=== PATIENT | female | born 1965 | race African-American/Black ===

== ENCOUNTER 2018-10-03 05:08 | Inpatient (IN) | payer OTHER ==
[~2018-10-03] VITALS: Ht 170.2 cm; Wt 101.6 kg
[2018-10-03] VITALS (13 sets, daily range): BP systolic 130–168; BP diastolic 73–88
--- NOTE | 2018-10-03 05:30 | NUR ---
RN MS OPENING NOTES RECEIVED PATIENT FOR DAY SURGERY VIA AMBULATORY, VS TAKEN WNL, RIGHT AC #20 G INTACT AND PATENT, NO REDNESS, NO INFILTRATION , CONSENTS SIGNED, PATIENT PREPARED FOR SAY SURGERY, BELONGINGS LIST DONE, MRSA DONE. PATIENT REMAINS COMFORTABLE AT THIS TIME, NPO STATUS.
[2018-10-03] MEDS ORDERED: ANESTHESIA TRAY IN PYXIS 1 EA TRAY MC ONE (05:54)
[2018-10-03] MEDS ORDERED: BACITRACIN 50000 UNITS/VIAL ONE (06:07)
[2018-10-03] MEDS ORDERED: FENTANYL PF 250MCG/5ML AMPUL ONE ×2 (06:13)
[2018-10-03] MEDS ORDERED: MIDAZOLAM HCL 2 MG/2ML VIAL ONE (06:13)
[2018-10-03] MEDS ORDERED: FAMOTIDINE/PF INJ 20 MG/2 ML VIAL IV ONE (06:14)
[2018-10-03] MEDS ORDERED: ROCURONIUM BROMIDE 50 MG/5 ML ONE (06:14)
[2018-10-03] MEDS ORDERED: BUPIVACAINE 0.25% 75 MG/30 ML VIAL ONE (06:15)
--- NOTE | 2018-10-03 06:20 | NUR ---
RN MS NOTES PATIENT WAS PICKED UP [facility] OR STAFF FOR SCHEDULED SURGERY WITH , LEFT IN STABLE CONDITION, PER SURGERY NEED TYPE AND CROSS, ORDERED PLACED ORDERED PER MD. LAB MADE AWARE. PATIENT IS OUT OF THE UNIT AT THIS TIME, WILL ENDORSE TO NEXT SHIFT.
[2018-10-03] MEDS ORDERED: TRANEXAMIC ACID 3,000 MG in SODIUM CHLORIDE IRRIG SOLUTION 70 ML IR ONE (08:00)
[2018-10-03] MEDS ORDERED: FENTANYL PF 100MCG/2ML AMPUL ONE (08:51)
[2018-10-03] MEDS ORDERED: HYDROMORPHONE 1 MG/1 ML DISP.SYRIN IV PRN (09:00)
[2018-10-03] MEDS ORDERED: diphenhydrAMINE HCL ELIX 25 MG/10 ML UDC PO PRN (09:00)
[2018-10-03] MEDS ORDERED: MAG HYDROX/AL HYDROX/SIMETH 30 ML UDC PO PRN ×2 (09:00→11:00)
[2018-10-03] MEDS ORDERED: KETOROLAC TROMETHAMINE INJ 30 MG/ML VIAL ONE (09:06)
[2018-10-03] MEDS ORDERED: MEPERIDINE HCL/PF 100 MG/ML DISP.SYRIN ONE (09:13)
--- NOTE | 2018-10-03 09:45 | NUR ---
MS RN NOTES RECEIVED PATIENT FROM OR VIA [facility]. PATIENT VITAL SIGNS BP 161/108, HR 68, 02 99%. ALERT AND ORIENTEDX 3. WILL CONTINUE TO MONITOR AND CONTROL PAIN.
[2018-10-03] MEDS: MORPHINE SULFATE INJ 4 MG/ML DISP.SYRIN IM PRN ×3 (10:43→20:06)
[2018-10-03] MEDS ORDERED: IV NS 0.9% 1,000 ML IV PRN (10:55)
[2018-10-03] MEDS ORDERED: ZOLPIDEM TARTRATE 5 MG TABLET PO PRN (11:00)
[2018-10-03] MEDS ORDERED: MAGNESIUM HYDROXIDE 30 ML UDC PO PRN (11:00)
[2018-10-03] MEDS ORDERED: ACETAMINOPHEN 325 MG TABLET PO PRN (11:00)
[2018-10-03] MEDS ORDERED: SENNOSIDES 8.6 MG TABLET PO PRN (12:30)
[2018-10-03] MEDS ORDERED: BISACODYL SUPP (10 MG) 10 MG/SUPP.RECT SUPP.RECT RC PRN (12:30)
[2018-10-03 12:36] LABS: HEMOGLOBIN 13.1 g/dL (11.5-14.8)
[2018-10-03] MEDS: ANCEF 1 GM/50 ML D5W IV SCH ×4 (15:45→22:52)
--- NOTE | 2018-10-03 19:20 | NUR ---
RN OPEN NOTES RECEIVED PATIENT AWAKE IN BED. A/O X4. NO SIGNS OF DISTRESS. BREATHING EVEN AND UNLABORED. IV ACCESS IN RAC, WITH NS INFUSING, PATENT AND INTACT, NO SIGNS OF REDNESS OR INFILTRATION. L ARM IMMOBILIZER INPLACE, SX DRESSING C/D/I. BED IN LOW LOCKED POSITION WITH SIDE RAILS X2. CALL LIGHT WITHIN REACH. WILL CONTINUE TO MONITOR.
--- NOTE | 2018-10-03 19:39 | NUR ---
MS RN CLOSING NOTES PATIENT AWAKE, ALERT AND ORIENTEDX4. PATIENT RESTING IN BED, ON ROOM AIR. PATIENT BREATHING IS EVEN AND UNLABORED. PATIENT IN NO ACUTE DISTRESS. PATIENT KEPT CLEAN, DRY, AND COMFORTABLE. INCENTIVE SPIROMETER AT THE BEDSIDE. PATIENT BED ALARM ON. PATIENT ON DVT PUMPS. IV INTACT. ALL NURSING NEEDS MET. ALL SAFETY PRECAUTIONS ENFORCED. PAIN CONTROL WITH MEDICATIONS. PATIENT BED LOCKED AND IN LOW POSITION. CALL LIGHT WITHIN REACH. ENDORSED CARE TO PM.
--- NOTE | 2018-10-03 20:06 | NUR ---
KARIE NOTES ADMINISTERED MORPHINE 4MG ORDERED FOR L SHOULDER PAIN 02/09, AT PATIENT REQUEST. VSS. WILL CONTINUE TO MONITOR. Addendum: 10/04/18 at 0558 by GRETCHEN CABEZAS RN INJ TO R DELTOID
[2018-10-03] MEDS: FAMOTIDINE (20 MG) 20 MG TABLET PO SCH (20:07)
--- NOTE | 2018-10-03 21:29 | NUR ---
RN NOTES ADMINISTERED DILAUDID .5MG ORDERED FOR L SHOULDER PAIN 02/09, AT PATIENT REQUEST. VSS. WILL CONTINUE TO MONITOR.
[2018-10-04] MEDS ORDERED: HYDROMORPHONE 1 MG/1 ML DISP.SYRIN SQ ONE
[2018-10-04] MEDS: ONDANSETRON HCL/PF 4 MG/2 ML VIAL IV PRN ×2 (00:41→08:42)
--- NOTE | 2018-10-04 00:41 | NUR ---
RN NOTES ADMINISTERED DILAUDID 1MG SQ ORDERED IN R UPPER ARM FOR L SHOULDER PAIN 12/10, AT PATIENT REQUEST. VSS. WILL CONTINUE TO MONITOR.
[2018-10-04] MEDS: HYDROMORPHONE 1 MG/1 ML DISP.SYRIN SQ PRN ×2 (05:32→08:41)
--- NOTE | 2018-10-04 05:32 | NUR ---
RN NOTES ADMINISTERED DILAUDID 1MG SQ ORDERED IN R LOWER ABD FOR L SHOULDER PAIN 01/10, AT PATIENT REQUEST. VSS. WILL CONTINUE TO MONITOR.
[2018-10-04 06:50] LABS: BASOPHILS % (AUTO) 0.1 % (0.0-2.0); HEMATOCRIT 36 % (33-45); HEMOGLOBIN 11.8 g/dL (11.5-14.8); LYMPHOCYTES # (AUTO) 1.1 /CMM (0.8-4.8); LYMPHOCYTES % (AUTO) 10.2 % (20.0-44.0); MEAN CORPUSCULAR HGB CONC 33 g/dl (31.0-36.0); MEAN CORPUSCULAR VOLUME 79 fL (82-100); MONOCYTES # (AUTO) 0.6 /CMM (0.1-1.30); MONOCYTES % (AUTO) 5.9 % (2.0-12.0); NEUTROPHILS # (AUTO) 9.3 /CMM (1.8-8.9); NEUTROPHILS % (AUTO) 83.8 % (43.0-81.0); PLATELET COUNT (AUTO) 138 /CMM (150-450); RED BLOOD CELL COUNT(AUTO) 4.61 MIL/uL (4.0-5.2); WHITE BLOOD COUNT (AUTO) 11.1 K/uL (4.3-11.0)
[2018-10-04 06:55] LABS: ALBUMIN 3.4 g/dL (3.4-5.0); BILIRUBIN,TOTAL 0.6 mg/dL (0.2-1.0); CALCIUM, SERUM 8.7 mg/dL (8.5-10.1); CREATININE 0.7 mg/dL (0.6-1.3); PHOSPHORUS 3.5 mg/dL (2.5-4.9); POTASSIUM 3.8 mmol/L (3.5-5.1); TOTAL PROTEIN, SERUM 7.4 g/dL (6.4-8.2)
--- NOTE | 2018-10-04 07:06 | NUR ---
RN CLOSING NOTES PATIENT RESTING IN BED, EASILY AROUSABLE. A/O X4. NO SIGNS OF DISTRESS OR DISCOMFORT. BREATHING EVEN AND UNLABORED. IV ACCESS IN RAC, WITH NS INFUSING, PATENT AND INTACT, NO SIGNS OF REDNESS OR INFILTRATION. L ARM IMMOBILIZER INPLACE, SX DRESSING C/D/I. ALL NEEDS MET. NO SIGNIFICANT CHANGES THROUGH THE NIGHT. BED IN LOW LOCKED POSITION WITH SIDE RAILS X2. CALL LIGHT WITHIN REACH. ENDORSED TO AM SHIFT FOR YEVGENIY.
--- NOTE | 2018-10-04 07:27 | NUR ---
MS RN OPENING NOTES PATIENT IN BED RESTING, AWAKE, ALERT, AND ORIENTED X4. PATIENT IN NO ACUTE DISTRESS. PATIENT BREATHING ON ROOM AIR. PATIENT BREATHING EVEN AND UNLABORED. PATIENT PAIN CONTROLLED AT THIS TIME. PATIENT DVT PUMPS ON. BED IS LOCKED AND IN LOW POSITION. CALL LIGHT WITHIN REACH. WILL CONTINUE TO MONITOR.
[2018-10-04 08:00] VITALS: BP 132/60
[2018-10-04] MEDS: ASPIRIN 325 MG TABLET PO SCH ×2 (08:42→18:06)
[2018-10-04] MEDS: FAMOTIDINE (20 MG) 20 MG TABLET PO SCH ×2 (08:42→20:25)
[2018-10-04] MEDS ORDERED: ONDA4TAB5 PO (11:06)
--- NOTE | 2018-10-04 11:15 | NUR ---
MS RN NOTES PATIENT WAS SEEN AND EVALUATED BY JOELLE SAN. DISCUSSED PLAN OF CARE AND WILL PROCEED WITH ORDERS FOLLOWED. WILL CONTINUE TO MONITOR.
[2018-10-04] MEDS ORDERED: IBUPROFEN 400 MG TABLET PO PRN (11:30)
[2018-10-04] MEDS: HYDROCODONE/APAP 10/325MG 1 EA TABLET PO PRN ×3 (15:40→23:28)
[2018-10-04 16:00] VITALS: BP 131/73
--- NOTE | 2018-10-04 19:30 | NUR ---
RECEIVED PATIENT SITTING UP IN BED, AWAKE. AO X 3, ABLE TO MAKE NEED KNOWN. NO ACUTE DISTRESS NOTED. MONITORED FOR PAIN. IV SITE PATENT, INTACT; FLUSHED. SAFETY REMINDERS GIVEN. ON LOW BED WITH BILATERAL UPPER SIDE RAILS UP. CALL RODGERS WITHIN EASY REACH. WILL CONTINUE TO MONITOR. AT BEDSIDE.
--- NOTE | 2018-10-04 19:46 | NUR ---
MS RN CLOSING NOTES PATIENT IN BED RESTING. PATIENT IN BED AWAKE, ALERT AND ORIENTED X4. PATIENT BREATHING ON ROOM AIR. PATIENT BREATHING EVEN AND UNLABORED. PATIENT PAIN CONTROLLED WITH PAIN MEDICATIONS. PATIENT IN NO ACUTE DISTRESS. NO SOB NOTED. IV INTACT. ALL NURSING NEEDS MET. PATIENT KEPT CLEAN, DRY AND COMFORTABLE. PATIENT BED IN LOCKED AND LOWEST POSITION. CALL LIGHT WITHIN REACH. ENDORSED CARE TO PM SHIFT FOR CONTINUITY OF CARE.
[2018-10-04 20:00] VITALS: BP 133/70
[2018-10-04 20:22] VITALS: BP 133/70
[2018-10-05] MEDS: HYDROCODONE/APAP 10/325MG 1 EA TABLET PO PRN ×3 (02:38→09:57)
--- NOTE | 2018-10-05 06:00 | NUR ---
PATIENT ASLEEP, EASILY AROUSABLE. RESPIRATIONS EVEN. NO SIGNS OF PAIN NOTED. DUE MED GIVEN WITH NO ASE NOTED. PATIENT'S IV GOT PULLED OUT. PATIENT STRONGLY REFUSED TO HAVE ANOTHER IV INSERTED. PATIENT ALSO REFUSED IVF. PATIENT DRINKING WELL. [facility] OFFERED Q 3 HOURS PER PATIENT'S REQUEST. NEEDS ATTENDED. SAFETY REMINDERS AND COMFORT MEASURES IN PLACE. WILL GIVE REPORT TO DAY SHIFT FOR CONTINUITY OF CARE.
--- NOTE | 2018-10-05 07:38 | NUR ---
MS RN OPENING NOTES PATIENT RESTING COMFORTABLY IN BED. PATIENT ALERT AND ORIENTED X4. PATIENT BREATHING ON ROOM AIR. PATIENT IN NO ACUTE DISTRESS. NO SOB NOTED. PATIENT BREATHING IS EVEN AND UNLABORED. PATIENT BED ALARM IS ON. PATIENT BED LOCKED AND IN LOWEST POSITION.CALL LIGHT WITHIN REACH. WILL CONTINUE TO MONITOR.
[2018-10-05 08:00] VITALS: BP 127/68
[2018-10-05] MEDS ORDERED: ONDANSETRON HCL 4 MG/5 ML SOLUTION PO PRN (09:00)
[2018-10-05] MEDS: ASPIRIN 325 MG TABLET PO SCH (09:57)
[2018-10-05] MEDS: FAMOTIDINE (20 MG) 20 MG TABLET PO SCH (09:57)
[2018-10-05] MEDS ORDERED: ONDANSETRON 4 MG TAB.RAPDIS PO PRN (10:00)
[2018-10-05] MEDS: HYDROMORPHONE 1 MG/1 ML DISP.SYRIN SQ PRN (10:57)
--- NOTE | 2018-10-05 12:00 | NUR ---
MS RN NOTES PATIENT DISCHARGED HOME WITH . ALERT, ORIENTED X4. IN STABLE CONDITION. DISCHARGE INSTRUCTIONS PROVIDED TO PATIENT VERBALIZED UNDERSTANDING. ALL BELONGINGS ACCOUNTED FOR. BELONGING LIST SIGNED. AWARE OF ALL ABNORMAL LABS AND TESTS. INSTRUCTED TO FOLLOW UP WITH DR VÁZQUEZ FOR FOLLOW UP APPOINTMENT INFORMATION PROVIDED. PRESCRIPTION PROVIDED TO PATIENT. PATIENT ESCORTED TO CAR.
== END 2018-10-05 12:00 | disposition home health service (06) | DRG 483 ==
LOC: DS 05:08 → MED 05:16
PROVIDERS: ADMIT Nurse Practitioner Acute Care; ATTEND Nurse Practitioner Acute Care
DX: M19.012 Primary osteoarthritis, left shoulder (principal); M75.102 Unspecified rotator cuff tear or rupture of left shoulder, not specified as traumatic; E66.9 Obesity, unspecified; M65.9 Synovitis and tenosynovitis, unspecified; Z68.35 Body mass index [BMI] 35.0-35.9, adult; E78.5 Hyperlipidemia, unspecified
CPT/HCPCS: 36415; 80053-TC; 80061-TC; 83735-TC; 84100-TC; 85025-TC; 85027-TC; 86850-TC; 87081-TC; A6402; G0378; J0690; J1170; J1885; J2175; J2250; J2270; J2405; J2704; J2710; J2765; J3010; J3490; J7030; J7060; Q0162; Q0163